=== PATIENT | female | born 1985 | race Two or more races ===

== ENCOUNTER 2021-09-13 12:12 | Inpatient (IN) | payer MEDICAID, OTHER ==
[~2021-09-13] VITALS: Ht 167.6 cm; Wt 90.8 kg
[2021-09-13] MEDS ORDERED: LORazepam 2MG/ML-1ML VIAL IV ONE (12:45)
[2021-09-13] MEDS ORDERED: SODIUM CHLORIDE 0.9% 1,000 ML IV ONE ×2 (12:45)
[2021-09-13 13:30] LABS: Basophils # (auto) 0 10 ^3/uL (0-0.2); Basophils % (auto) 0.7 % (0.0-2.0); Eosinophils # (auto) 0.1 10 ^3/uL (0-0.8); Eosinophils % (auto) 3.2 % (0.0-7.0); Hematocrit 36.5 % (36.0-46.0); Hemoglobin 12.1 g/dL (12.2-16.2); Lymphocytes # (auto) 1.4 10 ^3/uL (0.4-5.4); Lymphocytes % (auto) 37.6 % (10.0-50.0); Mean Corpuscular Hemoglobin 31.4 pg (28.0-32.0); Monocytes # (auto) 0.5 10 ^3/uL (0-1.3); Monocytes % (auto) 13.1 % (0.0-12.0); Neutrophils # (auto) 1.7 10 ^3/uL (1.6-8.6); Neutrophils % (auto) 45.4 % (37.0-80.0); Red Blood Cells 3.84 10^6/uL (4.0-5.20); Red Cell Distribution Width 13.4 % (11.8-14.3); White Blood Cell 3.7 10^3/uL (4.4-10.8)
[2021-09-13 13:33] LABS: Albumin 3.5 g/dL (3.4-5.0); BUN/Creatinine Ratio 8.3; Calcium 8.6 mg/dL (8.5-10.1); Potassium 4.3 mmol/L (3.5-5.1)
[2021-09-13 13:37] LABS: Bilirubin, Total 0.2 mg/dL (0.2-1.0); Total Protein 8.9 g/dL (6.4-8.2)
[2021-09-13 14:39] LABS: Urine Bacteria NONE SEEN /hpf (None Seen); Urine Blood Negative /uL (Negative); Urine Specific Gravity 1.008 (1.001-1.035); Urine WBC 17 /hpf (0 - 5)
[2021-09-13] MEDS ORDERED: NITROGLYCERIN 0.4 MG SL TAB SL PRN (15:45)
[2021-09-13] MEDS ORDERED: LORazepam 2MG/ML-1ML VIAL IV PRN (15:45)
[2021-09-13] MEDS ORDERED: MORPHINE SULFATE INJ 2 MG/ml SYRG IV PRN (15:45)
[2021-09-13] MEDS ORDERED: ONDANSETRON HCL 4 MG/2 ML VIAL IV PRN (15:45)
[2021-09-13 15:54] LABS: Alcohol, Urine < 3.0 mg/dL (0-10); Amphetamine Screen, Urine NEGATIVE (NEGATIVE); Barbiturate Scree,Urine NEGATIVE (NEGATIVE); Benzodiazephine Screen, Urine NEGATIVE (NEGATIVE); Cannabinoid Screen, Urine POSITIVE (NEGATIVE); Cocaine Screen, Urine NEGATIVE (NEGATIVE); Opiate Scree,Urine NEGATIVE (NEGATIVE); Phencyclidine Screen, Urine NEGATIVE (NEGATIVE)
[2021-09-13 16:29] LABS: Cholesterol 152 mg/dL (< 200)
[2021-09-13 16:32] LABS: HDL Cholesterol 32 mg/dL (40-59); LDL Cholesterol 118 mg/dL (< 100); Triglycerides 114 mg/dL (< 150)
[2021-09-13] MEDS ORDERED: ACETAMINOPHEN 500 MG TAB PO ONE (19:00)
[2021-09-14 03:47] VITALS: BP 129/69
[2021-09-14 06:32] LABS: Basophils # (auto) 0 10 ^3/uL (0-0.2); Basophils % (auto) 0.6 % (0.0-2.0); Eosinophils # (auto) 0.1 10 ^3/uL (0-0.8); Eosinophils % (auto) 3.1 % (0.0-7.0); Hematocrit 34.2 % (36.0-46.0); Hemoglobin 11.4 g/dL (12.2-16.2); Lymphocytes # (auto) 1.4 10 ^3/uL (0.4-5.4); Lymphocytes % (auto) 36.8 % (10.0-50.0); Mean Corpuscular Hemoglobin 31.6 pg (28.0-32.0); Mean Corpuscular Hgb Conc. 33.3 g/dL (32.0-36.0); Monocytes # (auto) 0.6 10 ^3/uL (0-1.3); Monocytes % (auto) 15.4 % (0.0-12.0); Neutrophils # (auto) 1.7 10 ^3/uL (1.6-8.6); Neutrophils % (auto) 44.1 % (37.0-80.0); Nucleated Red Blood Cells % 0.1 %; White Blood Cell 3.8 10^3/uL (4.4-10.8)
[2021-09-14 06:49] LABS: Albumin 3.1 g/dL (3.4-5.0); Calcium 8.5 mg/dL (8.5-10.1); Potassium 3.5 mmol/L (3.5-5.1)
[2021-09-14 06:53] LABS: Bilirubin, Total 0.3 mg/dL (0.2-1.0); Total Protein 8.1 g/dL (6.4-8.2)
[2021-09-14] MEDS ORDERED: ACETAMINOPHEN 325 MG TAB PO PRN ×2 (09:00→09:15)
[2021-09-14 09:42] VITALS: BP 110/67
[2021-09-14] MEDS: ENOXAPARIN SOD 40 MG/0.4 ML SYRINGE SC SCH (09:55)
[2021-09-14] MEDS: KETOROLAC TROMETH 30 MG/ML 1ML VIAL IV PRN (12:31)
[2021-09-14 13:30] VITALS: BP 128/68
[2021-09-14 17:30] VITALS: BP 131/76
[2021-09-14 21:47] VITALS: BP 129/73
[2021-09-15 04:51] VITALS: BP 105/65
[2021-09-15 09:00] VITALS: BP 123/79
[2021-09-15] MEDS: ENOXAPARIN SOD 40 MG/0.4 ML SYRINGE SC SCH (09:49)
[2021-09-15 13:00] VITALS: BP 116/72
[2021-09-15 17:00] VITALS: BP 114/69
[2021-09-15] MEDS ORDERED: DOCUSATE SOD 100 MG CAP PO ONE (18:00)
[2021-09-15 21:25] VITALS: BP 134/85
[2021-09-16 04:48] VITALS: BP 135/80
[2021-09-16] MEDS ORDERED: MIDAZOLAM HCL 2MG/2ML 2ml VIAL (1mg/ml) ONE (07:38)
[2021-09-16 08:13] VITALS: BP 119/79
[2021-09-16] MEDS: KETOROLAC TROMETH 30 MG/ML 1ML VIAL IV PRN (09:16)
[2021-09-16] MEDS: ENOXAPARIN SOD 40 MG/0.4 ML SYRINGE SC SCH (10:03)
[2021-09-16 11:42] VITALS: BP 105/50
[2021-09-16] MEDS: DOCUSATE SOD 100 MG CAP PO PRN (13:36)
[2021-09-16 17:00] VITALS: BP 120/65
[2021-09-16] MEDS ORDERED: MIDAZOLAM HCL 2MG/2ML 2ml VIAL (1mg/ml) IV PRN ×2 (20:15)
[2021-09-16] MEDS: SODIUM CHLORIDE 0.9% 1,000 ML IV SCH (20:15)
[2021-09-16] MEDS ORDERED: DexAMETHasone SOD PHOS 10MG/1ML VIAL INJ ONE (20:49)
[2021-09-16] MEDS: DexAMETHasone INJECTION 10 MG in D5W 5% 50 ML IV SCH (21:45)
[2021-09-16 21:46] VITALS: BP 128/45
[2021-09-16] MEDS: METOCLOPRAMIDE HCL 10 MG TAB PO SCH (21:46)
[2021-09-16] MEDS: levETIRAcetam 500 MG TAB PO SCH (21:46)
[2021-09-17] MEDS: SODIUM CHLORIDE 0.9% 1,000 ML IV SCH ×3 (04:22→20:15)
[2021-09-17 04:52] VITALS: BP 107/64
[2021-09-17] MEDS: METOCLOPRAMIDE HCL 10 MG TAB PO SCH ×3 (05:45→22:18)
[2021-09-17] MEDS: ENOXAPARIN SOD 40 MG/0.4 ML SYRINGE SC SCH (08:51)
[2021-09-17] MEDS: levETIRAcetam 500 MG TAB PO SCH ×2 (08:51→22:18)
[2021-09-17 09:00] VITALS: BP 109/67
[2021-09-17 17:00] VITALS: BP 121/76
[2021-09-17 22:00] VITALS: BP 121/73
[2021-09-17] MEDS: DexAMETHasone INJECTION 10 MG in D5W 5% 50 ML IV SCH (22:18)
[2021-09-18] MEDS: SODIUM CHLORIDE 0.9% 1,000 ML IV SCH ×3 (03:00→15:43)
[2021-09-18 05:00] VITALS: BP 127/77
[2021-09-18] MEDS: METOCLOPRAMIDE HCL 10 MG TAB PO SCH ×3 (05:48→22:15)
[2021-09-18] MEDS: DOCUSATE SOD 100 MG CAP PO PRN (06:39)
[2021-09-18 09:00] VITALS: BP 116/69
[2021-09-18] MEDS: levETIRAcetam 500 MG TAB PO SCH ×2 (09:04→22:15)
[2021-09-18] MEDS: ENOXAPARIN SOD 40 MG/0.4 ML SYRINGE SC SCH (09:05)
[2021-09-18] MEDS: KETOROLAC TROMETH 30 MG/ML 1ML VIAL IV PRN (11:38)
[2021-09-18 13:00] VITALS: BP 116/67
[2021-09-18] MEDS ORDERED: OMNIPAQUE ORAL SOLN 500ml 12mg/ml PO ONE (17:06)
[2021-09-18] MEDS ORDERED: LACTULOSE 20Gm/30ML SOLN PO ONE (17:15)
[2021-09-18] MEDS ORDERED: IOHEXOL 300 MG/ML 100ML BOTTLE IJ ONE (19:09)
[2021-09-18 22:00] VITALS: BP 118/74
[2021-09-18] MEDS: DexAMETHasone INJECTION 10 MG in D5W 5% 50 ML IV SCH (22:42)
[2021-09-19] MEDS: DOCUSATE SOD 100 MG CAP PO PRN
[2021-09-19] MEDS: SODIUM CHLORIDE 0.9% 1,000 ML IV SCH ×2 (04:42→12:15)
[2021-09-19 05:46] VITALS: BP 116/68
[2021-09-19] MEDS: METOCLOPRAMIDE HCL 10 MG TAB PO SCH ×2 (06:04→14:25)
[2021-09-19] MEDS ORDERED: MAGNESIUM CITRATE SOLUTION 300 ML BTL PO ONE (07:30)
[2021-09-19] MEDS ORDERED: LEVE500T32 PO (08:16)
[2021-09-19] MEDS ORDERED: METH4PAK PO (08:16)
[2021-09-19] MEDS ORDERED: LACT10PA2 PO (08:16)
[2021-09-19 09:00] VITALS: BP 128/69
[2021-09-19] MEDS: ENOXAPARIN SOD 40 MG/0.4 ML SYRINGE SC SCH (10:00)
[2021-09-19] MEDS: levETIRAcetam 500 MG TAB PO SCH (10:03)
[2021-09-19 13:00] VITALS: BP 123/74
== END 2021-09-19 18:00 | disposition home or self-care (01) | DRG 53 ==
LOC: ER 12:12 → EDBD 12:12 → TELE 15:38 → TELE-CENTR 23:28
PROVIDERS: ADMIT Registered Nurse; ATTEND Family Medicine
DX: G40.401 Other generalized epilepsy and epileptic syndromes, not intractable, with status epilepticus (principal); G43.909 Migraine, unspecified, not intractable, without status migrainosus; G43.B0 Ophthalmoplegic migraine, not intractable; K59.00 Constipation, unspecified; N39.0 Urinary tract infection, site not specified; Z20.822 Contact with and (suspected) exposure to COVID-19; Z91.040 Latex allergy status; Z79.899 Other long term (current) drug therapy; Z82.49 Family history of ischemic heart disease and other diseases of the circulatory system; Z83.3 Family history of diabetes mellitus; Z91.19 Patient's noncompliance with other medical treatment and regimen
CPT/HCPCS: 36415; 70450; 70551; 71045; 74177; 80053; 80061; 80307; 81001; 82306; 82542; 82607; 83036; 84443; 84484; 85025; 87086; 93005; 93886; 95819; 96365; 96375; 99291; G0378; J1100; J1885; J2250; J7060

== ENCOUNTER 2021-12-25 01:37 | Emergency (ER) | payer MEDICAID ==
[~2021-12-25] VITALS: Ht 167.6 cm; Wt 95.0 kg
[~2021-12-25 01:37] MED LIST: LACT10PA2 PO; LEVE500T32 PO; METH4PAK PO
[2021-12-25 02:22] LABS: Basophils # (auto) 0 10 ^3/uL (0-0.2); Basophils % (auto) 0.3 % (0.0-2.0); Eosinophils # (auto) 0 10 ^3/uL (0-0.8); Eosinophils % (auto) 0.2 % (0.0-7.0); Hematocrit 37.1 % (36.0-46.0); Hemoglobin 12.5 g/dL (12.2-16.2); Lymphocytes # (auto) 1.5 10 ^3/uL (0.4-5.4); Mean Corpuscular Hemoglobin 31.5 pg (28.0-32.0); Mean Corpuscular Hgb Conc. 33.6 g/dL (32.0-36.0); Mean Corpuscular Volume 93.7 fL (80.0-100.0); Monocytes # (auto) 1.3 10 ^3/uL (0-1.3); Monocytes % (auto) 15.1 % (0.0-12.0); Neutrophils # (auto) 5.5 10 ^3/uL (1.6-8.6); Neutrophils % (auto) 66.4 % (37.0-80.0); Red Blood Cells 3.96 10^6/uL (4.0-5.20); Red Cell Distribution Width 13.2 % (11.8-14.3); White Blood Cell 8.3 10^3/uL (4.4-10.8)
[2021-12-25 02:39] LABS: Albumin 3.6 g/dL (3.4-5.0); BUN/Creatinine Ratio 6.3; Potassium 3.9 mmol/L (3.5-5.1)
[2021-12-25 02:42] LABS: Bilirubin, Total 0.5 mg/dL (0.2-1.0); Total Protein 10.1 g/dL (6.4-8.2)
[2021-12-25] MEDS ORDERED: KETOROLAC TROMETH 60MG/2ML VIAL IM ONE (08:00)
[2021-12-25] MEDS ORDERED: IBU600T PO ×2 (08:04→09:40)
[2021-12-25 08:33] VITALS: BP 128/70
== END 2021-12-25 08:52 | disposition home or self-care (01) ==
LOC: ER 01:37
DX: R07.89 Other chest pain (principal); R09.1 Pleurisy; F12.10 Cannabis abuse, uncomplicated; Z91.040 Latex allergy status
CPT/HCPCS: 36415; 71045; 80053; 83880; 84484; 85025; 93005; 96372; 99285; J1885